=== PATIENT | male | born 1985 | race Caucasian/White ===

== ENCOUNTER 2017-10-06 19:52 | Inpatient (IN) | payer SELFPAY ==
[2017-10-06 19:54] VITALS: BP 139/77; PULSE 116; RESP 17; TEMP 37.6; O2SAT 97; BMI 23.9
--- NOTE | 2017-10-06 20:43 | EKG12_ITS ---
Test Reason : ABSCESS Blood Pressure : / mmHG Vent. Rate : 095 BPM Atrial Rate : 095 BPM P-R Int : 148 ms QRS Dur : 090 ms QT Int : 340 ms P-R-T Axes : 050 -43 048 degrees QTc Int : 427 ms Normal sinus rhythm Left axis deviation Abnormal ECG Confirmed by RINA JAVIER, JASON ([id number]), acquisitions editor FRANK WRAY ([id number] on 10/10/2017 1:06:21 PM Referred By: ODALIS Confirmed By:JASON FLYNN MD
[2017-10-06 21:11] LABS: Lactic Acid 1.9 mmol/L (0.4-2.0)
[2017-10-06 21:13] LABS: Absolute Lymphocyte Count 2.18 X10^3/ul (0.83-4.51); Absolute Neutrophil Count 13.3 X10^3/uL (2.0-7.7); Basophil# 0.03 X10^3/uL; Basophil% 0.2 % (0-1); Eosinophil# 0.11 X10^3/uL; Eosinophils% 0.7 % (0-5); Hematocrit 41.7 % (40-54); Hemoglobin 14.5 g/dl (13.0-16.5); Lymphocyte # 2.18 X10^3/ul (4.0); Lymphocyte % 13.1 % (19-41); Mean Corp Hgb Conc 34.8 g/gl (32-36); Mean Corpuscular Hgb 30.1 pg (27.0-32.0); Mean Corpuscular Volume 86.5 fL (80-94); Mean Platelet Vol. 9.7 fl (6.2-12.0); Monocyte# 0.93 X10^3/uL; Monocyte% 5.6 % (0-10); Neutrophil # 13.33 X10^3/uL (2.7-7.7); Neutrophil % 80.2 % (47-70); Platelet Count 364 K/mm3 (150-450); RBC Distribution Width CV 13.3 % (11.6-14.6); RBC Distribution Width SD 41.2 fl (35.1-43.9); Red Blood Count 4.82 M/mm3 (4.6-6.2); White Blood Count 16.6 K/mm3 (4.4-11.0)
[2017-10-06] MEDS: Acetaminophen 325 MG Tablet 650 MG PO (21:15)
[2017-10-06] MEDS: 0.9% Normal Saline 1,000 ML 250 ML IV (21:15)
[2017-10-06 21:16] LABS: Prothrombin Time (Protime)PT. 12.7 SECONDS (11.7-14.9)
[2017-10-06 21:17] LABS: Partial Thromboplast Time 28.4 Seconds (24.1-36.2)
[2017-10-06 21:18] LABS: POSITIVE COUNT NO; POSITIVE DIFFERENTIAL NO; POSITIVE MORPHOLOGY NO
--- NOTE | 2017-10-06 21:19 | RAD_ITS ---
STUDY: X-RAY - LEFT HAND REASON FOR EXAM: Male, 31 years old. Left hand infection. TECHNIQUE: 3 view(s) of the hand. COMPARISON: None. FINDINGS: There is no evidence of fracture or dislocation. There are no significant degenerative changes. There is soft tissue swelling along the dorsum of the hand. There are no definite radiographic findings of osteomyelitis. There are no radiodense foreign bodies. RAD/Hand Min 3 Views IMPRESSION: No fracture or dislocation. Soft tissue swelling along the dorsum of the left hand. No definite radiographic findings of osteomyelitis. Electronically Signed: Gerber Quintanilla, at 22:12 EDT Tel , Service support ,
[2017-10-06 21:31] LABS: ALB/GLOB Ratio 0.9 RATIO (0.9-2.4); AST(SGOT) 19 U/L (15-37); Alanine Aminotransfer ALT/SGPT 21 U/L (16-61); Albumin, Serum 3.7 g/dL (3.2-5.0); Alkaline Phosphatase 61 U/L (45-117); Anion Gap 12 (5-15); BUN 12 mg/dL (7-18); BUN/Creat Ratio 13.7 RATIO (10-20); Calcium,Total 8.4 mg/dL (8.5-10.1); Chloride 102 mmol/L (98-107); Creatinine, Serum 0.88 mg/dL (0.70-1.30); EST Glomerular Filtration Rate 106 mL/min (>60); Est Glom Filt Rate - Afr Amer 128 mL/min (>60); Estimated Creatinine Clearance 107.74 ml/min; Globulin 3.9 g/dL (2.2-4.2); Glucose 95 mg/dL (74-106); Potassium 3.4 mmol/L (3.5-5.1); Protein, Total 7.6 g/dL (6.4-8.2); Sodium Level 137 mmol/L (136-145)
[2017-10-06] MEDS: Vancomycin IV 1,000 MG/200 ML BAG 200 MG IV (22:41)
[2017-10-06] MEDS: oxyCODONE 5 MG Tablet 10 MG PO (22:44)
--- NOTE | 2017-10-06 22:44 | ED.DCSUM_ITS ---
- ER Visit Summary Date of Service: 10/06/17 Chief Complaint: Left hand abscess History of Present Illness: The patient is a 31 M presenting for evaluation secondary to left hand infection. Patient reports that 2 days ago he noticed a small pustule on the dorsum of his left hand. He is right-hand dominant. Patient thought he was bit by a spider, so he heated up a pen and poked it into the area. He states that he has now had increasing swelling redness and pain. He states that he has been getting some subjective fevers associated with this. Review of systems otherwise negative Physical Examination: Vital signs are notable for tachycardia with a rate of 116. Patient has mildly elevated temperature 99.6. Exam is unremarkable except for examination of the patient's left hand. There is a large approximately 3 cm area of raised fluctuance over the dorsal portion of the patient's distal third metacarpal. There is diffuse swelling over the dorsum of the hand going down into the fingers. There is no evidence of sausage digit , there is some pain with passive extension of the hand, but there is no pain going up into the forearm. There is diffuse erythema over the dorsum of the hand. No lymphangitic streaking. Test Results: CBC demonstrates leukocytosis of 16.9 remainder the patient's septic workup unremarkable Emergency Department Course and Treatment: Patient presented for evaluation secondary to a left hand infection. Patient was consented for incision and drainage. Area was anesthetized via a field block using 10 cc 1% lidocaine. The area was prepped with alcohol, was incised with an 11 blade and purulent material was expressed. This was cultured. This was left open placed in a dry sterile dressing and the patient was placed in a volar resting splint. Patient has evidence of sepsis at this time, I believe he requires admission patient was given vancomycin in the emergency department. He does not seem to have evidence that this is a deep space infection of his hand, and x-ray actually demonstrated the patient to have more dorsal soft tissue swelling. I discussed this with orthopedics, who agrees to see the patient in consultation. Patient will be admitted for further IV antibiotics and observation. Disposition: Admission Impression: 1. Left hand abscess with cellulitis 2. Sepsis This note was generated with [employer] software. It may contain incorrect words, spelling, and punctuation that were not noted in review of the chart prior to signing ED Disposition - Plan for ED Patient: Chief Complaint: Abscess Referrals: Luis Fernando Arzola MD [Primary Care Provider] -
--- NOTE | 2017-10-06 23:49 | HP.PCM_ITS ---
Problem List (1) ETOH abuse Status: Acute (2) Tobacco abuse Status: Acute (3) Cellulitis of left hand Status: Acute History of Present Illness Date of Admission: 10/06/17 Chief Complaint: Cellulitis The patient is a 31 year old male w/ h/o EtOH abuse and tobacco abuse admitted for left hand cellulitis. He noted 2 puncture wounds on his left hand 2 days ago. However, over the next few days, he noted worsening swelling and redness. Nothing made the redness better or worse. He has increase pain. Pain is severe and constant. Pain is sharp and dull-aching as well. He has chill. Past Medical History Allergies Penicillins Allergy (Verified 10/06/17 20:13) Hives Home Medications: Ambulatory Orders Medication Instructions Recorded Acyclovir 500 mg PO DAILY 10/06/17 NK [NK] 10/06/17 Smoking Status: Current every day smoker Alcohol: Heavy Drugs: None - *Family History Maternal History Items: No pertinent history Review of Systems Constitutional: Denies: Chills, Fever, Weight Change HEENT: Denies: Head Aches, Sinus Congestion, Sinus Drainage Cardiovascular: Denies: Chest Pain, Palpitations Respiratory: Denies: Cough, Shortness of breath at rest, Sputum production Gastrointestinal: Denies: Abdominal Pain, Nausea, Vomiting Genitourinary: Denies: Dysuria Musculoskeletal: Denies: Joint Pain, Joint Tenderness Skin: Reports: Rash. Denies: Wounds Neurological: Denies: Numbness, Tingling, Focal weakness Psychiatric: Denies: Anxiety, Depression, Homicidal Ideations, Suicidal Ideations Hematologic/ Lymphatic: Denies: Easy Bruising, Easy Bleeding VTE Information - Inpt Only VTE Present on Admission: No VTE Mechan Device Prophylaxis: SCD's VTE Pharm Prophylaxis ordered?: Yes Patient Problems: Active and Suspected Problems ETOH abuse (Acute) Tobacco abuse (Acute) Cellulitis of left hand (Acute) - Physical Exam General: Alert, Oriented x3, Cooperative HEENT: Atraumatic, PERRLA, EOMI, Normocephalic Neck: Supple, No JVD, Negative Carotid Bruits Lungs: Clear to auscultation, Normal air movement Cardiovascular: Regular rate, No murmurs Abdomen: Bowel Sounds Present, Soft, Non Tender Extremities: Capillary Refill Less than 3 Seconds, Tenderness, - - Dressing d/c/ i Skin: No rashes, No breakdown Musculoskeletal: No Tenderness to Palpation of Joints or Extremities Neurological: Cranial nerves II-XII grossly intact Psych/Mental Status: Normal Affect, Appropriate Vital Signs Temp Pulse Resp BP Pulse Ox 99.6 F H 116 H 17 139/77 H 97 10/06/17 19:54 10/06/17 19:54 10/06/17 19:54 10/06/17 19:54 10/06/17 19:54 Oxygen Delivery Method Room Air Weight: 67.3 kg Body Mass Index (BMI) 23.9 Laboratory Tests Past 24 Hrs 10/06/17 10/06/17 10/06/17 20:00 20:00 20:00 WBC 16.6 H RBC 4.82 Hgb 14.5 Hct 41.7 MCV 86.5 MCH 30.1 MCHC 34.8 RDW 13.3 RDW Differential 41.2 Plt Count 364 MPV 9.7 Immature Gran % (Auto) 0.200 Neut % (Auto) 80.2 H Lymph % (Auto) 13.1 L [place] % (Auto) 5.6 Eos % (Auto) 0.7 Baso % (Auto) 0.2 Absolute Neuts (auto) 13.3 H Absolute Lymphs (auto) 2.18 Total Counted Not Reportable PT 12.7 INR 1.0 APTT 28.4 Sodium Potassium Chloride Carbon Dioxide Anion Gap BUN Creatinine Estim Creat Clear Calc Est GFR (MDRD) Af Amer Est GFR (MDRD) Non-Af BUN/Creatinine Ratio Glucose Lactic Acid 1.9 Calcium Total Bilirubin AST ALT Alkaline Phosphatase Total Protein Albumin Globulin Albumin/Globulin Ratio 10/06/17 20:10 WBC RBC Hgb Hct MCV MCH MCHC RDW RDW Differential Plt Count MPV Immature Gran % (Auto) Neut % (Auto) Lymph % (Auto) [place] % (Auto) Eos % (Auto) Baso % (Auto) Absolute Neuts (auto) Absolute Lymphs (auto) Total Counted PT INR APTT Sodium 137 Potassium 3.4 L Chloride 102 Carbon Dioxide 23.0 Anion Gap 12 BUN 12 Creatinine 0.88 Estim Creat Clear Calc 107.74 Est GFR (MDRD) Af Amer 128 Est GFR (MDRD) Non-Af 106 BUN/Creatinine Ratio 13.7 Glucose 95 Lactic Acid Calcium 8.4 L Total Bilirubin 0.50 AST 19 ALT 21 Alkaline Phosphatase 61 Total Protein 7.6 Albumin 3.7 Globulin 3.9 Albumin/Globulin Ratio 0.9 Assessment/Plan All Active Problems ETOH abuse (Acute) Tobacco abuse (Acute) Cellulitis of left hand (Acute) 31 year old male w/ h/o EtOH abuse and tobacco abuse admitted for left hand cellulitis. 1) Sepsis secondary to cellulitis: C/w vancomycin. Cultures pending. Consulted ortho from ED. 2) EtOH abuse: Will monitor for withdrawal. C/w CIWA. C/w MVI. 3) Tobacco abuse: Nicotine patch. Monitor.
[2017-10-07 00:57] VITALS: BMI 23.2
[2017-10-07] MEDS: oxyCODONE 5 MG Tablet PO ×5 (01:33→19:24)
[2017-10-07 02:16] VITALS: BP 110/68; PULSE 92; RESP 16; TEMP 37.8; O2SAT 96
--- NOTE | 2017-10-07 03:25 | PCM.RX.CS ---
Consult Pharmacy has been consulted to manage selected antiobiotic: Vancomycin Type of Consult: New start Suspected Infection: Skin/Soft tissue Prior Doses of Antibiotics Received/Current Regimen: Medications Discontinued Medications Vancomycin HCl (Vancomycin) 1,000 mg in 200 mls @ 200 mls/hr IV X1 ONE Stop: 10/06/17 21:59 Last Admin: 10/06/17 22:41 Dose: 200 mls/hr Labs: Sodium 137 mmol/L (136-145) 10/06/17 20:10 Potassium 3.4 mmol/L (3.5-5.1) L 10/06/17 20:10 Chloride 102 mmol/L (98-107) 10/06/17 20:10 Carbon Dioxide 23.0 mmol/L (21.0-32.0) 10/06/17 20:10 Anion Gap 12 (5-15) 10/06/17 20:10 BUN 12 mg/dL (7-18) 10/06/17 20:10 Creatinine 0.88 mg/dL (0.70-1.30) 10/06/17 20:10 Est GFR (MDRD) Af Amer 128 mL/min (>60) 10/06/17 20:10 Est GFR (MDRD) Non-Af 106 mL/min (>60) 10/06/17 20:10 BUN/Creatinine Ratio 13.7 RATIO (10-20) 10/06/17 20:10 Glucose 95 mg/dL (74-106) 10/06/17 20:10 Weight used for dosin.3 kg Estimated Creatinine Clearance: 107.7 Goal Trough: 15-20 mcg/mL Pharmacy Plan for Drug Dosing: Pharmacy Service will continue to monitor and adjust dosing as required. Medications Vancomycin HCl 750 mg/ Sodium (Chloride) 265 mls @ 265 mls/hr IV Q8H [facility] Follow-Up Labs: Trough Vancomycin Labs to be done on [date and time ordered]: 10/07 @2300
--- NOTE | 2017-10-07 03:28 | PHA.PHARE_ITS ---
Consult Pharmacy has been consulted to manage selected antiobiotic: Vancomycin Type of Consult: New start Suspected Infection: Skin/Soft tissue Prior Doses of Antibiotics Received/Current Regimen: Medications Discontinued Medications Vancomycin HCl (Vancomycin) 1,000 mg in 200 mls @ 200 mls/hr IV X1 ONE Stop: 10/06/17 21:59 Last Admin: 10/06/17 22:41 Dose: 200 mls/hr Labs: Sodium 137 mmol/L (136-145) 10/06/17 20:10 Potassium 3.4 mmol/L (3.5-5.1) L 10/06/17 20:10 Chloride 102 mmol/L (98-107) 10/06/17 20:10 Carbon Dioxide 23.0 mmol/L (21.0-32.0) 10/06/17 20:10 Anion Gap 12 (5-15) 10/06/17 20:10 BUN 12 mg/dL (7-18) 10/06/17 20:10 Creatinine 0.88 mg/dL (0.70-1.30) 10/06/17 20:10 Est GFR (MDRD) Af Amer 128 mL/min (>60) 10/06/17 20:10 Est GFR (MDRD) Non-Af 106 mL/min (>60) 10/06/17 20:10 BUN/Creatinine Ratio 13.7 RATIO (10-20) 10/06/17 20:10 Glucose 95 mg/dL (74-106) 10/06/17 20:10 Weight used for dosin.3 kg Estimated Creatinine Clearance: 107.7 Goal Trough: 15-20 mcg/mL Pharmacy Plan for Drug Dosing: Pharmacy Service will continue to monitor and adjust dosing as required. Medications Vancomycin HCl 750 mg/ Sodium (Chloride) 265 mls @ 265 mls/hr IV Q8H [facility] Follow-Up Labs: Trough Vancomycin Labs to be done on [date and time ordered]: 10/07 @2300
[2017-10-07] MEDS: 0.9% Normal Saline 1,000 ML 100 ML IV ×2 (05:41→18:16)
[2017-10-07 06:10] LABS: Absolute Lymphocyte Count 1.05 X10^3/ul (0.83-4.51); Absolute Neutrophil Count 11.2 X10^3/uL (2.0-7.7); Basophil# 0.02 X10^3/uL; Basophil% 0.1 % (0-1); Eosinophil# 0.11 X10^3/uL; Eosinophils% 0.8 % (0-5); Hematocrit 39.1 % (40-54); Hemoglobin 13.3 g/dl (13.0-16.5); Lymphocyte # 1.05 X10^3/ul (4.0); Lymphocyte % 7.8 % (19-41); Mean Corpuscular Volume 88.1 fL (80-94); Mean Platelet Vol. 9.6 fl (6.2-12.0); Monocyte# 1.15 X10^3/uL; Monocyte% 8.5 % (0-10); Neutrophil # 11.15 X10^3/uL (2.7-7.7); Neutrophil % 82.6 % (47-70); Platelet Count 292 K/mm3 (150-450); RBC Distribution Width CV 13.4 % (11.6-14.6); RBC Distribution Width SD 42.8 fl (35.1-43.9); Red Blood Count 4.44 M/mm3 (4.6-6.2); White Blood Count 13.5 K/mm3 (4.4-11.0)
[2017-10-07 06:24] LABS: Anion Gap 7 (5-15); BUN 17 mg/dL (7-18); BUN/Creat Ratio 26.9 RATIO (10-20); Chloride 107 mmol/L (98-107); Creatinine, Serum 0.63 mg/dL (0.70-1.30); EST Glomerular Filtration Rate 154 mL/min (>60); Est Glom Filt Rate - Afr Amer 187 mL/min (>60); Estimated Creatinine Clearance 155.92 ml/min; Glucose 132 mg/dL (74-106); Potassium 4.1 mmol/L (3.5-5.1); Sodium Level 140 mmol/L (136-145)
[2017-10-07 06:34] LABS: POSITIVE COUNT NO; POSITIVE DIFFERENTIAL NO; POSITIVE MORPHOLOGY NO
[2017-10-07 07:30] LABS: Bedside Glucose 112 mg/dL (70-110)
--- NOTE | 2017-10-07 08:53 | NURSING ---
wound photo: left hand s/p I&D
--- NOTE | 2017-10-07 09:00 | NURSING ---
wound photo: left hand
[2017-10-07 09:14] VITALS: BP 113/77; PULSE 81; RESP 16; TEMP 36.9; O2SAT 98
[2017-10-07] MEDS: Thiamine Hydrochloride 100 MG Tablet PO (09:56)
--- NOTE | 2017-10-07 10:32 | PCM.PN.HOSP ---
Patient Problems: Active and Suspected Problems ETOH abuse (Acute) Tobacco abuse (Acute) Cellulitis of left hand (Acute) Subjective: had some purulent fluid expressed from dorsal left knuckle by wound care today. Vitals/I&O's: Vital Signs Temp Pulse Resp BP Pulse Ox 36.9 C 81 16 113/77 98 10/07/17 09:14 10/07/17 09:14 10/07/17 09:14 10/07/17 09:14 10/07/17 09:14 Oxygen Delivery Method Room Air Weight: 67.33 kg Body Mass Index (BMI) 23.2 Intake and Output for Last 24 Hours 10/05/17 10/06/17 10/07/17 23:59 23:59 23:59 Intake Total 500 / 500 Balance 500 / 500 General: Alert, No apparent distress HEENT: Atraumatic, Normocephalic Oral: Moist Mucosa, No Gingival or Mucosal Lesions/ Ulcerations Neck: No Nodes, Thyroid Normal Size and Texture Lungs: Clear to auscultation, Normal air movement, No rhonchi, No wheeze Cardiovascular: Regular rate, Regular Rhythm, Normal S1, Normal S2 Abdomen: Bowel Sounds Present, Soft, Non Tender, Non-Distended Extremities: - - left hand and wrist in splint, did not remove. Psych/Mental Status: Normal Affect, Appropriate Laboratory Results 10/07/17 05:45: WBC 13.5 H, RBC 4.44 L, Hgb 13.3, Hct 39.1 L, MCV 88.1, MCH 30.0, MCHC 34.0, RDW 13.4, RDW Differential 42.8, Plt Count 292, MPV 9.6, Immature Gran % (Auto) 0.200, Neut % (Auto) 82.6 H, Lymph % (Auto) 7.8 L, [place] % (Auto) 8.5, Eos % (Auto) 0.8, Baso % (Auto) 0.1, Absolute Neuts (auto) 11.2 H, Absolute Lymphs (auto) 1.05, Total Counted Not Reportable 10/07/17 05:45: Sodium 140, Potassium 4.1, Chloride 107, Carbon Dioxide 26.0, Anion Gap 7, BUN 17, Creatinine 0.63 L, Estim Creat Clear Calc 155.92, Est GFR (MDRD) Af Amer 187, Est GFR (MDRD) Non-Af 154, BUN/Creatinine Ratio 26.9 H, Glucose 132 H, Calcium 8.0 L 10/07/17 07:27: POC Glucose 112 H 10/07/17 08:50: S.aureus Protein A PCR Pending, MRSA (PCR) Pending Current Medications Dextrose (D50w Syringe) 0 gm IV X1 PRN; Protocol PRN Reason: Hypoglycemia Glucagon () 1 mg IM .X1 PRN PRN Reason: Hypoglycemia Heparin Sodium (Porcine) (Heparin Na) 5,000 unit SC Q8 [facility] Last Admin: 10/07/17 06:53 Dose: Not Given Sodium Chloride () 1,000 mls @ 100 mls/hr IV .Q10H [facility] Last Admin: 10/07/17 05:41 Dose: 100 mls/hr Vancomycin HCl 750 mg/ Sodium (Chloride) 265 mls @ 265 mls/hr IV Q8H [facility] Last Admin: 10/07/17 06:51 Dose: 265 mls/hr Lorazepam (Ativan) 2 mg PO Q2H PRN PRN; Protocol PRN Reason: CIWA score > 8 but <15 Lorazepam (Ativan) 2 mg PO UD PRN; Protocol PRN Reason: CIWA score >/=15. Lorazepam (Ativan) 2 mg IV Q2H PRN PRN; Protocol PRN Reason: CIWA score > 8 but <15 Lorazepam (Ativan) 2 mg IV UD PRN; Protocol PRN Reason: CIWA score >/=15. Magnesium Hydroxide (Milk Of Magnesia) 30 ml PO DAILY PRN PRN PRN Reason: Constipation Multivitamins/Minerals (Multivitamin With Minerals) 1 tablet PO DAILY@0800 [facility] Nicotine (Nicoderm Cq (Pbkc)) 21 mg TRANSDERM. DAILY [facility] Last Admin: 10/07/17 09:57 Dose: 21 mg Oxycodone HCl (Oxyir) 5 mg PO Q4H PRN PRN PRN Reason: Moderate Pain (pain scale 4-5) Last Admin: 10/07/17 09:57 Dose: 5 mg Sodium Chloride () 5 - 30 ml IV UD PRN PRN Reason: SALINE FLUSH [facility] Last Admin: 10/07/17 09:56 Dose: 100 mg Medical Necessity - Tobacco Use Smoking Status: Current every day smoker Assessment/Plan All Active Problems ETOH abuse (Acute) Tobacco abuse (Acute) Cellulitis of left hand (Acute) 1. cellulitis and abscess of left hand. blood cultures negative so far wound culture pending. on vancomycin ortho on consult 2. alcohol abuse drinks pretty much everyday, usually 2-24 oz beers. last drink yesterday AM. previously, was an even heavier drinker no s/s withdrawal/DTs. on CIWA protocol MVI 3. DVT proph: LMWH. Code Visit Inpatient E&M: 06893 Subs Hosp L2
--- NOTE | 2017-10-07 10:37 | PN_ITS ---
Patient Problems: Active and Suspected Problems ETOH abuse (Acute) Tobacco abuse (Acute) Cellulitis of left hand (Acute) Subjective: had some purulent fluid expressed from dorsal left knuckle by wound care today. Vitals/I&O's: Vital Signs Temp Pulse Resp BP Pulse Ox 36.9 C 81 16 113/77 98 10/07/17 09:14 10/07/17 09:14 10/07/17 09:14 10/07/17 09:14 10/07/17 09:14 Oxygen Delivery Method Room Air Weight: 67.33 kg Body Mass Index (BMI) 23.2 Intake and Output for Last 24 Hours 10/05/17 10/06/17 10/07/17 23:59 23:59 23:59 Intake Total 500 / 500 Balance 500 / 500 General: Alert, No apparent distress HEENT: Atraumatic, Normocephalic Oral: Moist Mucosa, No Gingival or Mucosal Lesions/ Ulcerations Neck: No Nodes, Thyroid Normal Size and Texture Lungs: Clear to auscultation, Normal air movement, No rhonchi, No wheeze Cardiovascular: Regular rate, Regular Rhythm, Normal S1, Normal S2 Abdomen: Bowel Sounds Present, Soft, Non Tender, Non-Distended Extremities: - - left hand and wrist in splint, did not remove. Psych/Mental Status: Normal Affect, Appropriate Laboratory Results 10/07/17 05:45: WBC 13.5 H, RBC 4.44 L, Hgb 13.3, Hct 39.1 L, MCV 88.1, MCH 30.0 , MCHC 34.0, RDW 13.4, RDW Differential 42.8, Plt Count 292, MPV 9.6, Immature Gran % (Auto) 0.200, Neut % (Auto) 82.6 H, Lymph % (Auto) 7.8 L, [place] % (Auto) 8.5, Eos % (Auto) 0.8, Baso % (Auto) 0.1, Absolute Neuts (auto) 11.2 H, Absolute Lymphs (auto) 1.05, Total Counted Not Reportable 10/07/17 05:45: Sodium 140, Potassium 4.1, Chloride 107, Carbon Dioxide 26.0, Anion Gap 7, BUN 17, Creatinine 0.63 L, Estim Creat Clear Calc 155.92, Est GFR ( MDRD) Af Amer 187, Est GFR (MDRD) Non-Af 154, BUN/Creatinine Ratio 26.9 H, Glucose 132 H, Calcium 8.0 L 10/07/17 07:27: POC Glucose 112 H 10/07/17 08:50: S.aureus Protein A PCR Pending, MRSA (PCR) Pending Current Medications Dextrose (D50w Syringe) 0 gm IV X1 PRN; Protocol PRN Reason: Hypoglycemia Glucagon () 1 mg IM .X1 PRN PRN Reason: Hypoglycemia Heparin Sodium (Porcine) (Heparin Na) 5,000 unit SC Q8 [facility] Last Admin: 10/07/17 06:53 Dose: Not Given Sodium Chloride () 1,000 mls @ 100 mls/hr IV .Q10H [facility] Last Admin: 10/07/17 05:41 Dose: 100 mls/hr Vancomycin HCl 750 mg/ Sodium (Chloride) 265 mls @ 265 mls/hr IV Q8H [facility] Last Admin: 10/07/17 06:51 Dose: 265 mls/hr Lorazepam (Ativan) 2 mg PO Q2H PRN PRN; Protocol PRN Reason: CIWA score > 8 but <15 Lorazepam (Ativan) 2 mg PO UD PRN; Protocol PRN Reason: CIWA score >/=15. Lorazepam (Ativan) 2 mg IV Q2H PRN PRN; Protocol PRN Reason: CIWA score > 8 but <15 Lorazepam (Ativan) 2 mg IV UD PRN; Protocol PRN Reason: CIWA score >/=15. Magnesium Hydroxide (Milk Of Magnesia) 30 ml PO DAILY PRN PRN PRN Reason: Constipation Multivitamins/Minerals (Multivitamin With Minerals) 1 tablet PO DAILY@0800 [facility] Nicotine (Nicoderm Cq (Pbkc)) 21 mg TRANSDERM. DAILY [facility] Last Admin: 10/07/17 09:57 Dose: 21 mg Oxycodone HCl (Oxyir) 5 mg PO Q4H PRN PRN PRN Reason: Moderate Pain (pain scale 4-5) Last Admin: 10/07/17 09:57 Dose: 5 mg Sodium Chloride () 5 - 30 ml IV UD PRN PRN Reason: SALINE FLUSH Thiamine [facility] ([facility]itamin B1) [facility] Last Admin: 10/07/17 09:56 Dose: 100 mg Medical Necessity - Tobacco Use Smoking Status: Current every day smoker Assessment/Plan All Active Problems ETOH abuse (Acute) Tobacco abuse (Acute) Cellulitis of left hand (Acute) 1. cellulitis and abscess of left hand. * blood cultures negative so far * wound culture pending. * on vancomycin * ortho on consult 2. alcohol abuse * drinks pretty much everyday, usually 2-24 oz beers. last drink yesterday AM. * previously, was an even heavier drinker * no s/s withdrawal/DTs. * on CIWA protocol * MVI 3. DVT proph: LMWH. Code Visit Inpatient E&M: 53841 Subs Hosp L2
--- NOTE | 2017-10-07 11:53 | CASEMGMT ---
Social Work Assessment: Referral Date: 10/07/2017 Date of Assessment: 10/07/2017 Reason for consult: Self-pay Informant: CHARITY Personal Status: SW met with pt as pt is listed as self-pay. SW introduced self and role at [facility]. Pt is alert and orientated x4. Pt has company present and gave this worker permission to speak to pt in front of company. Pt states that his company is his emergency contact. Pt states that before coming in to the hospital he was living with his significant other in an apartment. Pt states that he has three steps to enter his apartment. Pt states that he was previously independent with ADLs. Pt denied DME. Pt states that he used to work at [employer] and that he currently doesn't have insurance. Pt states that a while ago he completed a Medicaid Application. SW encouraged pt to fill out Medicaid application again to determine if he is eligible to receive Medicaid. Pt is agreeable to filling out Medicaid application. Pt states that his plans is to return home at discharge and denied additional needs or concerns at this time. Substance Abuse Hx: Pt states that he currently uses alcohol and smokes Marijuana. Pt states that it depends on how much alcohol and marijuana he uses. Pt denied wanting substance abuse counseling resources. Mental Health Hx: Pt states that he has a history of depression, bipolar, and ADHD. Pt states that he used to receive counseling services at [facility]. Pt states counseling probably would've helped but I didn't want to to talk to anyone. Pt denied wanting additional counseling services/resources at this time. CHARITY provided pt with Medicaid Application and educated pt on [employer] [facility], [facility], prescription assistance programs, [facility], transportation services as pt stated he currently doesn't have transportation, and [employer] application. When this worker provided pt with financial assistance resources pt requested a release of information form to fill out. CHARITY provided pt with release of information form. Pt states that once his emergency contact returns to the room he would like her to fill out forms. CHARITY placed a call to Martita in Patient Financial Services and left her a message informing her that pt is agreeable to filling out Medicaid Application. Plan: Pt to return home at discharge Elvi Montiel [employer]
--- NOTE | 2017-10-07 12:13 | PN.ORTHO_ITS ---
Patient Problems: Active and Suspected Problems ETOH abuse (Acute) Tobacco abuse (Acute) Cellulitis of left hand (Acute) Subjective: ORTH CONSULT Patient reports possible spider bite 3-4 days ago on dorsum of left hand. Came through ED yesterday where dorsum of left hand was I & D'd. Reports pain in left hand, but not up arm. Denies constitutional symptoms. PMHx, PSHx, ROS, Family hx, Medications and allergies reviewed per intake H&P. - Physical Exam General: Oriented x3, No apparent distress Extremities: Tenderness - left hand with dorsal warmth and erythema. +Kanavel' s signs salma middle and index digits. No pain with ROM in wrist. No redness or streaking. Dorsal I&D wound over middle mcp joint with gauze packing. Vital Signs Temp Pulse Resp BP Pulse Ox 98.5 F 81 16 113/77 98 10/07/17 09:14 10/07/17 09:14 10/07/17 09:14 10/07/17 09:14 10/07/17 09:14 Oxygen Delivery Method Room Air Weight: 148 lb 7 oz Body Mass Index (BMI) 23.2 Intake and Output for Last 24 Hours 10/05/17 10/06/17 10/07/17 23:59 23:59 23:59 Intake Total 500 / 500 Balance 500 / 500 Laboratory Tests Past 24 Hrs 10/07/17 10/07/17 10/07/17 05:45 05:45 08:50 WBC 13.5 H RBC 4.44 L Hgb 13.3 Hct 39.1 L MCV 88.1 MCH 30.0 MCHC 34.0 RDW 13.4 RDW Differential 42.8 Plt Count 292 MPV 9.6 Immature Gran % (Auto) 0.200 Neut % (Auto) 82.6 H Lymph % (Auto) 7.8 L [place] % (Auto) 8.5 Eos % (Auto) 0.8 Baso % (Auto) 0.1 Absolute Neuts (auto) 11.2 H Absolute Lymphs (auto) 1.05 Total Counted Not Reportable Sodium 140 Potassium 4.1 Chloride 107 Carbon Dioxide 26.0 Anion Gap 7 BUN 17 Creatinine 0.63 L Estim Creat Clear Calc 155.92 Est GFR (MDRD) Af Amer 187 Est GFR (MDRD) Non-Af 154 BUN/Creatinine Ratio 26.9 H Glucose 132 H Calcium 8.0 L S.aureus Protein A PCR Pending MRSA (PCR) Pending POC Glucose 10/07/17 07:27 POC Glucose 112 H Medical Necessity - Tobacco Use Smoking Status: Current every day smoker Assessment/Plan All Active Problems ETOH abuse (Acute) Tobacco abuse (Acute) Cellulitis of left hand (Acute) Cellulitis left hand cannot r/o dorsal tenosynovitis or mcp septic arthritis at this point. Pending response to IV antibiotics, may need more formal surgical attention. As I explained to the ED physician, I do not do this type of surgery. Patient has had previous left hand/wrist I&D in [place]. Recommend transfer if doesn't respond well to antibiotic tx in the next 12-24 hrs.
[2017-10-07 12:20] LABS: M R Staph aureus DNA By PCR POSITIVE (Negative); Probe Check PASS; Staph aureus DNA By PCR POSITIVE (Negative)
[2017-10-07] MEDS: Multivitamins,Ther W-Minerals Tablet 1 TABLET PO (12:45)
[2017-10-07 13:05] LABS: Bedside Glucose 106 mg/dL (70-110)
[2017-10-07] MEDS: Heparin Injection (Vial) 5,000 UNIT/ML VIAL 5000 UNIT SC ×2 (15:01→23:15)
[2017-10-07 15:12] VITALS: BP 129/75; PULSE 78; RESP 16; TEMP 37.2; O2SAT 97
[2017-10-07 17:10] LABS: Bedside Glucose 105 mg/dL (70-110)
[2017-10-07 22:31] VITALS: BP 128/79; PULSE 72; RESP 14; TEMP 37.1; O2SAT 97
[2017-10-07 23:00] LABS: Bedside Glucose 121 mg/dL (70-110)
[2017-10-07 23:24] LABS: Vancomycin, Trough Level 5.9 ug/mL (5.0-15.0)
[2017-10-08] MEDS: oxyCODONE 5 MG Tablet PO ×5 (00:10→23:31)
[2017-10-08 03:00] VITALS: BP 125/81; PULSE 63; RESP 14; TEMP 37.2; O2SAT 97
[2017-10-08] MEDS: Heparin Injection (Vial) 5,000 UNIT/ML VIAL 5000 UNIT SC ×3 (05:37→21:01)
--- NOTE | 2017-10-08 07:12 | PCM.RX.CS ---
Consult Pharmacy has been consulted to manage selected antiobiotic: Vancomycin Type of Consult: New start Suspected Infection: Skin/Soft tissue Prior Doses of Antibiotics Received/Current Regimen: Medications Vancomycin HCl 750 mg/ Sodium (Chloride) 265 mls @ 265 mls/hr IV Q8H [facility] Last Admin: 10/08/17 06:01 Dose: 265 mls/hr Labs: Sodium 140 mmol/L (136-145) 10/07/17 05:45 Potassium 4.1 mmol/L (3.5-5.1) 10/07/17 05:45 Chloride 107 mmol/L (98-107) 10/07/17 05:45 Carbon Dioxide 26.0 mmol/L (21.0-32.0) 10/07/17 05:45 Anion Gap 7 (5-15) 10/07/17 05:45 BUN 17 mg/dL (7-18) 10/07/17 05:45 Creatinine 0.63 mg/dL (0.70-1.30) L 10/07/17 05:45 Est GFR (MDRD) Af Amer 187 mL/min (>60) 10/07/17 05:45 Est GFR (MDRD) Non-Af 154 mL/min (>60) 10/07/17 05:45 BUN/Creatinine Ratio 26.9 RATIO (10-20) H 10/07/17 05:45 Glucose 132 mg/dL (74-106) H 10/07/17 05:45 Vancomycin Trough 5.9 ug/mL (5.0-15.0) 10/07/17 22:34 Weight used for dosin kg Estimated Creatinine Clearance: 155 mL/min Goal Trough: 10-15 mcg/mL Pharmacy Plan for Drug Dosing: Vancomycin trough not within goal range but likely not yet at steady-state. Patient with relatively small BMI, good renal function, recommend to increase to 1000mg IV q8h, shorten time slightly to next dose to allow for increased trough. Check in 48h to ensure efficacy. Pharmacy Service will continue to monitor and adjust dosing as required. Follow-Up Labs: Trough Vancomycin - 10/10/17 @ 1300
--- NOTE | 2017-10-08 08:03 | PCM.PN.ORT ---
Patient Problems: Active and Suspected Problems ETOH abuse (Acute) Tobacco abuse (Acute) Cellulitis of left hand (Acute) Subjective: Patient doing better, pain rated 4-5/10, improved from 6-7/10 yesterday. Denies F/C/N/V. - Physical Exam General: Alert, Oriented x3, No apparent distress HEENT: Atraumatic Oral: Moist Mucosa Extremities: Tenderness - Left hend with focal swelling over middle MCP. Less erythema, no streaking. Minimal pain with passive motion of fingers. Vital Signs Temp Pulse Resp BP Pulse Ox 98.9 F 63 14 125/81 H 97 10/08/17 03:00 10/08/17 03:00 10/08/17 03:00 10/08/17 03:00 10/08/17 03:00 Oxygen Delivery Method Room Air Weight: 148 lb 7 oz Body Mass Index (BMI) 23.2 Intake and Output for Last 24 Hours 10/06/17 10/07/17 10/08/17 23:59 23:59 23:59 Intake Total 3601 / 3601 1445 / 1445 Output Total 1500 / 1500 Balance 2101 / 2101 1445 / 1445 Laboratory Tests Past 24 Hrs 10/07/17 10/07/17 08:50 22:34 Vancomycin Trough 5.9 S.aureus Protein A PCR POSITIVE H MRSA (PCR) POSITIVE H POC Glucose 10/07/17 10/07/17 10/07/17 22:43 16:39 12:34 POC Glucose 121 H 105 106 Medical Necessity - Tobacco Use Smoking Status: Current every day smoker Assessment/Plan All Active Problems ETOH abuse (Acute) Tobacco abuse (Acute) Cellulitis of left hand (Acute) Cellulitis left hand probably secondary to spider bite. Afebrile now and x 20 hours. Wound care present to change dressing now. If continues to show improvement on IV antibiotics, will likely not need transferred for more extensive I&D. Will follow closely.
[2017-10-08 08:25] LABS: Absolute Lymphocyte Count 1.59 X10^3/ul (0.83-4.51); Absolute Neutrophil Count 6.9 X10^3/uL (2.0-7.7); Basophil# 0.02 X10^3/uL; Basophil% 0.2 % (0-1); Eosinophil# 0.25 X10^3/uL; Eosinophils% 2.6 % (0-5); Hematocrit 39.4 % (40-54); Hemoglobin 13.3 g/dl (13.0-16.5); Lymphocyte # 1.59 X10^3/ul (4.0); Lymphocyte % 16.8 % (19-41); Mean Corp Hgb Conc 33.8 g/gl (32-36); Mean Corpuscular Hgb 30.2 pg (27.0-32.0); Mean Corpuscular Volume 89.3 fL (80-94); Mean Platelet Vol. 9.3 fl (6.2-12.0); Monocyte# 0.69 X10^3/uL; Monocyte% 7.3 % (0-10); Neutrophil # 6.89 X10^3/uL (2.7-7.7); Platelet Count 278 K/mm3 (150-450); RBC Distribution Width CV 13.5 % (11.6-14.6); RBC Distribution Width SD 44.1 fl (35.1-43.9); Red Blood Count 4.41 M/mm3 (4.6-6.2); White Blood Count 9.5 K/mm3 (4.4-11.0)
[2017-10-08 08:26] LABS: POSITIVE COUNT NO; POSITIVE DIFFERENTIAL NO; POSITIVE MORPHOLOGY NO
[2017-10-08] MEDS: Multivitamins,Ther W-Minerals Tablet 1 TABLET PO (08:31)
[2017-10-08] MEDS: Thiamine Hydrochloride 100 MG Tablet PO (08:31)
[2017-10-08] MEDS: Acyclovir 200 MG Capsule PO ×2 (08:31→21:00)
[2017-10-08 08:35] VITALS: BP 132/88; PULSE 72; RESP 16; TEMP 36.6; O2SAT 100
[2017-10-08 08:46] LABS: Bedside Glucose 114 mg/dL (70-110)
--- NOTE | 2017-10-08 09:26 | PCM.PN.HOSP ---
Patient Problems: Active and Suspected Problems ETOH abuse (Acute) Tobacco abuse (Acute) Cellulitis of left hand (Acute) Subjective: Left hand feeling better. Swelling has receded down arm to just confining the dorsum of his left hand. Able to bend his fingers of his left hand better, but back to normal, yet. Vitals/I&O's: Vital Signs Temp Pulse Resp BP Pulse Ox 36.6 C 72 16 132/88 H 100 10/08/17 08:35 10/08/17 08:35 10/08/17 08:35 10/08/17 08:35 10/08/17 08:35 Oxygen Delivery Method Room Air Weight: 67.33 kg Body Mass Index (BMI) 23.2 Intake and Output for Last 24 Hours 10/06/17 10/07/17 10/08/17 23:59 23:59 23:59 Intake Total 3601 / 3601 1445 / 1445 Output Total 1500 / 1500 Balance 2101 / 2101 1445 / 1445 General: Alert, Cooperative, No apparent distress HEENT: Atraumatic, Normocephalic Oral: Moist Mucosa, No Gingival or Mucosal Lesions/ Ulcerations Skin: - - opened abscess on dorsum of left hand with wick. no erythema. swelling around opening. no lymphagitis. Musculoskeletal: No Tenderness to Palpation of Joints or Extremities, No Muscle Wasting Psych/Mental Status: Normal Affect, Appropriate Laboratory Results 10/07/17 08:50: S.aureus Protein A PCR POSITIVE H, MRSA (PCR) POSITIVE H 10/07/17 12:34: POC Glucose 106 10/07/17 16:39: POC Glucose 105 10/07/17 22:34: Vancomycin Trough 5.9 10/07/17 22:43: POC Glucose 121 H 10/08/17 07:58: WBC 9.5, RBC 4.41 L, Hgb 13.3, Hct 39.4 L, MCV 89.3, MCH 30.2, MCHC 33.8, RDW 13.5, RDW Differential 44.1 H, Plt Count 278, MPV 9.3, Immature Gran % (Auto) 0.100, Neut % (Auto) 73.0 H, Lymph % (Auto) 16.8 L, [place] % (Auto) 7.3, Eos % (Auto) 2.6, Baso % (Auto) 0.2, Absolute Neuts (auto) 6.9, Absolute Lymphs (auto) 1.59, Total Counted Not Reportable 10/08/17 08:27: POC Glucose 114 H Current Medications Acyclovir (Zovirax) 200 mg PO BID [facility] Last Admin: 10/08/17 08:31 Dose: 200 mg Dextrose (D50w Syringe) 0 gm IV X1 PRN; Protocol PRN Reason: Hypoglycemia Glucagon () 1 mg IM .X1 PRN PRN Reason: Hypoglycemia Heparin Sodium (Porcine) (Heparin Na) 5,000 unit SC Q8 [facility] Last Admin: 10/08/17 05:37 Dose: 5,000 units Sodium Chloride () 1,000 mls @ 100 mls/hr IV .Q10H [facility] Last Admin: 10/07/17 18:16 Dose: 100 mls/hr Vancomycin HCl (Vancomycin) 1,000 mg in 200 mls @ 200 mls/hr IV Q8H [facility] Lorazepam (Ativan) 2 mg PO Q2H PRN PRN; Protocol PRN Reason: CIWA score > 8 but <15 Lorazepam (Ativan) 2 mg PO UD PRN; Protocol PRN Reason: CIWA score >/=15. Lorazepam (Ativan) 2 mg IV Q2H PRN PRN; Protocol PRN Reason: CIWA score > 8 but <15 Lorazepam (Ativan) 2 mg IV UD PRN; Protocol PRN Reason: CIWA score >/=15. Magnesium Hydroxide (Milk Of Magnesia) 30 ml PO DAILY PRN PRN PRN Reason: Constipation Multivitamins/Minerals (Multivitamin With Minerals) 1 tablet PO DAILY@0800 [facility] Last Admin: 10/08/17 08:31 Dose: 1 tablet Nicotine (Nicoderm Cq (Pbkc)) 21 mg TRANSDERM. DAILY [facility] Last Admin: 10/08/17 08:31 Dose: 21 mg Oxycodone HCl (Oxyir) 5 mg PO Q4H PRN PRN PRN Reason: Moderate Pain (pain scale 4-5) Last Admin: 10/08/17 07:56 Dose: 5 mg Sodium Chloride () 5 - 30 ml IV UD PRN PRN Reason: SALINE FLUSH Thiamine HCl (Vitamin B1) 100 mg PO DAILYCM [facility] Last Admin: 10/08/17 08:31 Dose: 100 mg Medical Necessity - Tobacco Use Smoking Status: Current every day smoker Assessment/Plan All Active Problems ETOH abuse (Acute) Tobacco abuse (Acute) Cellulitis of left hand (Acute) 1. cellulitis and abscess of left hand. improving I+D in ER blood cultures negative so far wound culture + MRSA on vancomycin ortho on consult and indicated no acute surgical needs (but if develop, then patient will need to be transferred to tertiary facility) consult ID for home going recs if continues to improve, then the hope would be to discharge as soon as the . 2. alcohol abuse drinks pretty much everyday, usually 2-24 oz beers. last drink yesterday AM. previously, was an even heavier drinker no s/s withdrawal/DTs. on CIWA protocol MVI 3. DVT proph: LMWH. Code Visit Inpatient E&M: 92814 Subs Hosp L2
--- NOTE | 2017-10-08 09:31 | PN_ITS ---
Patient Problems: Active and Suspected Problems ETOH abuse (Acute) Tobacco abuse (Acute) Cellulitis of left hand (Acute) Subjective: Left hand feeling better. Swelling has receded down arm to just confining the dorsum of his left hand. Able to bend his fingers of his left hand better, but back to normal, yet. Vitals/I&O's: Vital Signs Temp Pulse Resp BP Pulse Ox 36.6 C 72 16 132/88 H 100 10/08/17 08:35 10/08/17 08:35 10/08/17 08:35 10/08/17 08:35 10/08/17 08:35 Oxygen Delivery Method Room Air Weight: 67.33 kg Body Mass Index (BMI) 23.2 Intake and Output for Last 24 Hours 10/06/17 10/07/17 10/08/17 23:59 23:59 23:59 Intake Total 3601 / 3601 1445 / 1445 Output Total 1500 / 1500 Balance 2101 / 2101 1445 / 1445 General: Alert, Cooperative, No apparent distress HEENT: Atraumatic, Normocephalic Oral: Moist Mucosa, No Gingival or Mucosal Lesions/ Ulcerations Skin: - - opened abscess on dorsum of left hand with wick. no erythema. swelling around opening. no lymphagitis. Musculoskeletal: No Tenderness to Palpation of Joints or Extremities, No Muscle Wasting Psych/Mental Status: Normal Affect, Appropriate Laboratory Results 10/07/17 08:50: S.aureus Protein A PCR POSITIVE H, MRSA (PCR) POSITIVE H 10/07/17 12:34: POC Glucose 106 10/07/17 16:39: POC Glucose 105 10/07/17 22:34: Vancomycin Trough 5.9 10/07/17 22:43: POC Glucose 121 H 10/08/17 07:58: WBC 9.5, RBC 4.41 L, Hgb 13.3, Hct 39.4 L, MCV 89.3, MCH 30.2, MCHC 33.8, RDW 13.5, RDW Differential 44.1 H, Plt Count 278, MPV 9.3, Immature Gran % (Auto) 0.100, Neut % (Auto) 73.0 H, Lymph % (Auto) 16.8 L, [place] % (Auto) 7.3, Eos % (Auto) 2.6, Baso % (Auto) 0.2, Absolute Neuts (auto) 6.9, Absolute Lymphs (auto) 1.59, Total Counted Not Reportable 10/08/17 08:27: POC Glucose 114 H Current Medications Acyclovir (Zovirax) 200 mg PO BID [facility] Last Admin: 10/08/17 08:31 Dose: 200 mg Dextrose (D50w Syringe) 0 gm IV X1 PRN; Protocol PRN Reason: Hypoglycemia Glucagon () 1 mg IM .X1 PRN PRN Reason: Hypoglycemia Heparin Sodium (Porcine) (Heparin Na) 5,000 unit SC Q8 [facility] Last Admin: 10/08/17 05:37 Dose: 5,000 units Sodium Chloride () 1,000 mls @ 100 mls/hr IV .Q10H [facility] Last Admin: 10/07/17 18:16 Dose: 100 mls/hr Vancomycin HCl (Vancomycin) 1,000 mg in 200 mls @ 200 mls/hr IV Q8H [facility] Lorazepam (Ativan) 2 mg PO Q2H PRN PRN; Protocol PRN Reason: CIWA score > 8 but <15 Lorazepam (Ativan) 2 mg PO UD PRN; Protocol PRN Reason: CIWA score >/=15. Lorazepam (Ativan) 2 mg IV Q2H PRN PRN; Protocol PRN Reason: CIWA score > 8 but <15 Lorazepam (Ativan) 2 mg IV UD PRN; Protocol PRN Reason: CIWA score >/=15. Magnesium Hydroxide (Milk Of Magnesia) 30 ml PO DAILY PRN PRN PRN Reason: Constipation Multivitamins/Minerals (Multivitamin With Minerals) 1 tablet PO DAILY@0800 [facility] Last Admin: 10/08/17 08:31 Dose: 1 tablet Nicotine (Nicoderm Cq (Pbkc)) 21 mg TRANSDERM. DAILY [facility] Last Admin: 10/08/17 08:31 Dose: 21 mg Oxycodone HCl (Oxyir) 5 mg PO Q4H PRN PRN PRN Reason: Moderate Pain (pain scale 4-5) Last Admin: 10/08/17 07:56 Dose: 5 mg Sodium Chloride () 5 - 30 ml IV UD PRN PRN Reason: SALINE FLUSH Thiamine HCl (Vitamin B1) 100 mg PO DAILYCM [facility] Last Admin: 10/08/17 08:31 Dose: 100 mg Medical Necessity - Tobacco Use Smoking Status: Current every day smoker Assessment/Plan All Active Problems ETOH abuse (Acute) Tobacco abuse (Acute) Cellulitis of left hand (Acute) 1. cellulitis and abscess of left hand. * improving * I+D in ER * blood cultures negative so far * wound culture + MRSA * on vancomycin * ortho on consult and indicated no acute surgical needs (but if develop, then patient will need to be transferred to tertiary facility) * consult ID for home going recs * if continues to improve, then the hope would be to discharge as soon as the . 2. alcohol abuse * drinks pretty much everyday, usually 2-24 oz beers. last drink yesterday AM. * previously, was an even heavier drinker * no s/s withdrawal/DTs. * on CIWA protocol * MVI 3. DVT proph: LMWH. Code Visit Inpatient E&M: 05982 Subs Hosp L2
[2017-10-08] MEDS: 0.9% Normal Saline 1,000 ML 100 ML IV (11:53)
[2017-10-08 12:00] LABS: Bedside Glucose 89 mg/dL (70-110)
[2017-10-08] MEDS: Vancomycin IV 1,000 MG/200 ML BAG 200 MG IV ×2 (13:21→20:49)
[2017-10-08 13:27] VITALS: BP 136/103; PULSE 80; RESP 16; TEMP 36.7; O2SAT 100
[2017-10-08 15:21] VITALS: BP 129/89; PULSE 69; RESP 16; TEMP 36.8; O2SAT 100
[2017-10-08] MEDS: LORazepam 1 MG Tablet 2 MG PO ×2 (15:31→18:27)
[2017-10-08 16:30] LABS: Bedside Glucose 82 mg/dL (70-110)
[2017-10-08 18:17] VITALS: BP 124/84; PULSE 74; RESP 18; TEMP 36.7; O2SAT 95
[2017-10-08 20:51] VITALS: BP 109/70; PULSE 80; RESP 18; TEMP 36.8; O2SAT 98
[2017-10-08 23:35] LABS: Bedside Glucose 95 mg/dL (70-110)
[2017-10-09] MEDS: 0.9% Normal Saline 1,000 ML 100 ML IV ×2 (02:00→11:46)
[2017-10-09 03:50] VITALS: BP 110/68; PULSE 85; RESP 18; TEMP 36.8; O2SAT 97
[2017-10-09] MEDS: Vancomycin IV 1,000 MG/200 ML BAG 200 MG IV (05:04)
[2017-10-09] MEDS: oxyCODONE 5 MG Tablet PO ×2 (05:54→10:15)
[2017-10-09] MEDS: Heparin Injection (Vial) 5,000 UNIT/ML VIAL 5000 UNIT SC (05:55)
[2017-10-09 06:01] LABS: Bedside Glucose 105 mg/dL (70-110)
--- NOTE | 2017-10-09 06:22 | NURSING ---
Pt's nicotine patch was coming off so he removed it and I disposed of it in the sharps container. He is aware he will get another one this am. Coffee provided at his request.
--- NOTE | 2017-10-09 08:13 | PN.ORTHO_ITS ---
Patient Problems: Active and Suspected Problems ETOH abuse (Acute) Tobacco abuse (Acute) Cellulitis of left hand (Acute) Subjective: Feeling much better this morning Pain 2-3/10 with motion - Physical Exam General: Alert, Oriented x3, No apparent distress Extremities: Tenderness - left hand with I&D over LMF MCP. Able to actively and passively move fingers w/o significant pain. Negative Kan[place]'s signs Vital Signs Temp Pulse Resp BP Pulse Ox 98.2 F 85 18 110/68 97 10/09/17 03:50 10/09/17 03:50 10/09/17 03:50 10/09/17 03:50 10/09/17 03:50 Oxygen Delivery Method Room Air Weight: 148 lb 5.938 oz Body Mass Index (BMI) 23.2 Intake and Output for Last 24 Hours 10/07/17 10/08/17 10/09/17 23:59 23:59 23:59 Intake Total 3601 / 3601 3953 / 3953 1605 / 1605 Output Total 1500 / 1500 Balance 2101 / 2101 3953 / 3953 1605 / 1605 Laboratory Tests Past 24 Hrs 10/08/17 07:58 WBC 9.5 RBC 4.41 L Hgb 13.3 Hct 39.4 L MCV 89.3 MCH 30.2 MCHC 33.8 RDW 13.5 RDW Differential 44.1 H Plt Count 278 MPV 9.3 Immature Gran % (Auto) 0.100 Neut % (Auto) 73.0 H Lymph % (Auto) 16.8 L [place] % (Auto) 7.3 Eos % (Auto) 2.6 Baso % (Auto) 0.2 Absolute Neuts (auto) 6.9 Absolute Lymphs (auto) 1.59 Total Counted Not Reportable POC Glucose 10/09/17 10/08/17 10/08/17 05:52 23:30 16:26 POC Glucose 105 95 82 10/08/17 10/08/17 11:49 08:27 POC Glucose 89 114 H Medical Necessity - Tobacco Use Smoking Status: Current every day smoker Assessment/Plan All Active Problems ETOH abuse (Acute) Tobacco abuse (Acute) Cellulitis of left hand (Acute) Cellulitis left hand Still will monitor for deep web space infection ID consulted Can probably be sent home on oral atbx pending ID reccomendations with close follow up as outpatient. May yet need deeper I&D. Case discussed with hospitalist and patient.
--- NOTE | 2017-10-09 08:54 | NURSING ---
wound photo: left hand
--- NOTE | 2017-10-09 09:32 | PCM.PN.HOSP ---
Patient Problems: Active and Suspected Problems ETOH abuse (Acute) Tobacco abuse (Acute) Cellulitis of left hand (Acute) Subjective: No new complaints. Vitals/I&O's: Vital Signs Temp Pulse Resp BP Pulse Ox 36.8 C 85 18 110/68 97 10/09/17 03:50 10/09/17 03:50 10/09/17 03:50 10/09/17 03:50 10/09/17 03:50 Oxygen Delivery Method Room Air Weight: 67.3 kg Body Mass Index (BMI) 23.2 Intake and Output for Last 24 Hours 10/07/17 10/08/17 10/09/17 23:59 23:59 23:59 Intake Total 3601 / 3601 3953 / 3953 1605 / 1605 Output Total 1500 / 1500 Balance 2101 / 2101 3953 / 3953 1605 / 1605 General: Alert, No apparent distress HEENT: Atraumatic, Normocephalic Extremities: - - left hand wound with some purulence, but patient had no pain with expressing it. decreased edema on dorsum of hand. Laboratory Results 10/08/17 11:49: POC Glucose 89 10/08/17 16:26: POC Glucose 82 10/08/17 23:30: POC Glucose 95 10/09/17 05:52: POC Glucose 105 Current Medications Acyclovir (Zovirax) 200 mg PO BID [facility] Last Admin: 10/08/17 21:00 Dose: 200 mg Dextrose (D50w Syringe) 0 gm IV X1 PRN; Protocol PRN Reason: Hypoglycemia Glucagon () 1 mg IM .X1 PRN PRN Reason: Hypoglycemia Heparin Sodium (Porcine) (Heparin Na) 5,000 unit SC Q8 [facility] Last Admin: 10/09/17 05:55 Dose: 5,000 units Sodium Chloride () 1,000 mls @ 100 mls/hr IV .Q10H [facility] Last Admin: 10/09/17 02:00 Dose: 100 mls/hr Vancomycin HCl (Vancomycin) 1,000 mg in 200 mls @ 200 mls/hr IV Q8H [facility] Last Admin: 10/09/17 05:04 Dose: 200 mls/hr Lorazepam (Ativan) 2 mg PO Q2H PRN PRN; Protocol PRN Reason: CIWA score > 8 but <15 Last Admin: 10/08/17 18:27 Dose: 2 mg Lorazepam (Ativan) 2 mg PO UD PRN; Protocol PRN Reason: CIWA score >/=15. Lorazepam (Ativan) 2 mg IV Q2H PRN PRN; Protocol PRN Reason: CIWA score > 8 but <15 Lorazepam (Ativan) 2 mg IV UD PRN; Protocol PRN Reason: CIWA score >/=15. Magnesium Hydroxide (Milk Of Magnesia) 30 ml PO DAILY PRN PRN PRN Reason: Constipation Multivitamins/Minerals (Multivitamin With Minerals) 1 tablet PO DAILY@0800 [facility] Last Admin: 10/08/17 08:31 Dose: 1 tablet Nicotine (Nicoderm Cq (Pbkc)) 21 mg TRANSDERM. DAILY [facility] Last Admin: 10/08/17 08:31 Dose: 21 mg Oxycodone HCl (Oxyir) 5 mg PO Q4H PRN PRN PRN Reason: Moderate Pain (pain scale 4-5) Last Admin: 10/09/17 05:54 Dose: 5 mg Sodium Chloride () 5 - 30 ml IV UD PRN PRN Reason: SALINE FLUSH Thiamine HCl (Vitamin B1) 100 mg PO DAILYCM [facility] Last Admin: 10/08/17 08:31 Dose: 100 mg Medical Necessity - Tobacco Use Smoking Status: Current every day smoker Assessment/Plan All Active Problems ETOH abuse (Acute) Tobacco abuse (Acute) Cellulitis of left hand (Acute) 1. cellulitis and abscess of left hand. improving I+D in ER blood cultures negative so far wound culture + MRSA on vancomycin ortho on consult and indicated no acute surgical needs (but if develop, then patient will need to be transferred to tertiary facility). Patient to follow up as outpt. consult ID for home going recs if continues to improve, then the hope would be to discharge as soon as the . Patient to do wound care at home. 2. alcohol abuse drinks pretty much everyday, usually 2-24 oz beers. last drink yesterday AM. previously, was an even heavier drinker no s/s withdrawal/DTs. on CIWA protocol MVI 3. DVT proph: LMWH.
--- NOTE | 2017-10-09 09:35 | PN_ITS ---
Patient Problems: Active and Suspected Problems ETOH abuse (Acute) Tobacco abuse (Acute) Cellulitis of left hand (Acute) Subjective: No new complaints. Vitals/I&O's: Vital Signs Temp Pulse Resp BP Pulse Ox 36.8 C 85 18 110/68 97 10/09/17 03:50 10/09/17 03:50 10/09/17 03:50 10/09/17 03:50 10/09/17 03:50 Oxygen Delivery Method Room Air Weight: 67.3 kg Body Mass Index (BMI) 23.2 Intake and Output for Last 24 Hours 10/07/17 10/08/17 10/09/17 23:59 23:59 23:59 Intake Total 3601 / 3601 3953 / 3953 1605 / 1605 Output Total 1500 / 1500 Balance 2101 / 2101 3953 / 3953 1605 / 1605 General: Alert, No apparent distress HEENT: Atraumatic, Normocephalic Extremities: - - left hand wound with some purulence, but patient had no pain with expressing it. decreased edema on dorsum of hand. Laboratory Results 10/08/17 11:49: POC Glucose 89 10/08/17 16:26: POC Glucose 82 10/08/17 23:30: POC Glucose 95 10/09/17 05:52: POC Glucose 105 Current Medications Acyclovir (Zovirax) 200 mg PO BID [facility] Last Admin: 10/08/17 21:00 Dose: 200 mg Dextrose (D50w Syringe) 0 gm IV X1 PRN; Protocol PRN Reason: Hypoglycemia Glucagon () 1 mg IM .X1 PRN PRN Reason: Hypoglycemia Heparin Sodium (Porcine) (Heparin Na) 5,000 unit SC Q8 [facility] Last Admin: 10/09/17 05:55 Dose: 5,000 units Sodium Chloride () 1,000 mls @ 100 mls/hr IV .Q10H [facility] Last Admin: 10/09/17 02:00 Dose: 100 mls/hr Vancomycin HCl (Vancomycin) 1,000 mg in 200 mls @ 200 mls/hr IV Q8H [facility] Last Admin: 10/09/17 05:04 Dose: 200 mls/hr Lorazepam (Ativan) 2 mg PO Q2H PRN PRN; Protocol PRN Reason: CIWA score > 8 but <15 Last Admin: 10/08/17 18:27 Dose: 2 mg Lorazepam (Ativan) 2 mg PO UD PRN; Protocol PRN Reason: CIWA score >/=15. Lorazepam (Ativan) 2 mg IV Q2H PRN PRN; Protocol PRN Reason: CIWA score > 8 but <15 Lorazepam (Ativan) 2 mg IV UD PRN; Protocol PRN Reason: CIWA score >/=15. Magnesium Hydroxide (Milk Of Magnesia) 30 ml PO DAILY PRN PRN PRN Reason: Constipation Multivitamins/Minerals (Multivitamin With Minerals) 1 tablet PO DAILY@0800 [facility] Last Admin: 10/08/17 08:31 Dose: 1 tablet Nicotine (Nicoderm Cq (Pbkc)) 21 mg TRANSDERM. DAILY [facility] Last Admin: 10/08/17 08:31 Dose: 21 mg Oxycodone HCl (Oxyir) 5 mg PO Q4H PRN PRN PRN Reason: Moderate Pain (pain scale 4-5) Last Admin: 10/09/17 05:54 Dose: 5 mg Sodium Chloride () 5 - 30 ml IV UD PRN PRN Reason: SALINE FLUSH Thiamine HCl (Vitamin B1) 100 mg PO DAILYCM [facility] Last Admin: 10/08/17 08:31 Dose: 100 mg Medical Necessity - Tobacco Use Smoking Status: Current every day smoker Assessment/Plan All Active Problems ETOH abuse (Acute) Tobacco abuse (Acute) Cellulitis of left hand (Acute) 1. cellulitis and abscess of left hand. * improving * I+D in ER * blood cultures negative so far * wound culture + MRSA * on vancomycin * ortho on consult and indicated no acute surgical needs (but if develop, then patient will need to be transferred to tertiary facility). Patient to follow up as outpt. * consult ID for home going recs * if continues to improve, then the hope would be to discharge as soon as the . * Patient to do wound care at home. 2. alcohol abuse * drinks pretty much everyday, usually 2-24 oz beers. last drink yesterday AM. * previously, was an even heavier drinker * no s/s withdrawal/DTs. * on CIWA protocol * MVI 3. DVT proph: LMWH.
[2017-10-09] MEDS: Thiamine Hydrochloride 100 MG Tablet PO (10:15)
[2017-10-09] MEDS: Acyclovir 200 MG Capsule PO (10:15)
[2017-10-09] MEDS: Multivitamins,Ther W-Minerals Tablet 1 TABLET PO (10:15)
[2017-10-09 10:43] VITALS: BP 112/70; PULSE 84; RESP 18; TEMP 36.6; O2SAT 98
[2017-10-09] MEDS: Smz/Tmp Ds Tablet 1 TABLET PO (11:46)
[2017-10-09 11:50] LABS: Bedside Glucose 113 mg/dL (70-110)
--- NOTE | 2017-10-09 12:34 | CON.PCM_ITS ---
Problem List (1) MRSA (methicillin resistant Staphylococcus aureus) infection Status: Acute Reason for Consult: mrsa infection Consulted by: Dr. Jaime History of Present Illness: The patient is a 31 year old M with h/o etoh use who presented 10/06 with one day history of L hand dorsal swelling, pain, and redness. Woke up 10/05 with swelling over 3rd MCP. No known inciting event, no prior h/o MRSA infection or skin boils. Had some streaking up his wrist. Heated and used peroxide on safety pin to try to alejandra the area, area got much worse, came to ED. I&D done in ED, given vanc, ortho consulted, now much improved. He is L handed. Full ROS performed and neg except as noted above. - Medical History Surgical History: reviewed Allergies/Adverse Reactions: Allergies Penicillins Allergy (Verified 10/06/17 20:13) Hives Home Medications: Ambulatory Orders Medication Instructions Recorded Valacyclovir HCl [Valacyclovir] 500 mg PO DAILY 10/07/17 Smz/Tmp Ds [Bactrim Ds] 1 tab PO BIDCM 10 Days #20 tab 10/09/17 - Social History Tobacco Use: cigarettes Vital Signs Temp Pulse Resp BP Pulse Ox 97.9 F 84 18 112/70 98 10/09/17 10:43 10/09/17 10:43 10/09/17 10:43 10/09/17 10:43 10/09/17 10:43 Oxygen Delivery Method Room Air Weight: 67.3 kg Body Mass Index (BMI) 23.2 - Other Studies Radiology: [] reviewed Other Studies: [] Route of nutrition/ use of supplements: [] Nutritional Intake: [] IV Site: [] Merino Catheter: [] - Physical Exam General: Alert, Oriented x3, Cooperative HEENT: Atraumatic, PERRLA, EOMI Neck: Supple, No Nodes Lungs: Clear to auscultation, Normal air movement Cardiovascular: Regular rate, Regular Rhythm Abdomen: Bowel Sounds Present, Soft, Non Tender, Non-Distended Extremities: No edema Skin: Ulcer/ Wound - L hand photo reviewed IV Site: Peripheral, without redness Neurological: Cranial nerves II-XII grossly intact - Assessment/Plan Antibiotics: [] Assessment/Plan: [] Active and Suspected Problems ETOH abuse (Acute) Tobacco abuse (Acute) Cellulitis of left hand (Acute) L hand MRSA abscess with cellulitis - improving, ortho following. Ok for d/c home on po bactrim DS bid for 10 more days. Monitor for rash, fever, worsening hand. I gave him my card if he has any issues. Sent rx to [facility]. Thank you, will follow.
--- NOTE | 2017-10-09 13:00 | PCM.DC ---
- Discharge Diagnoses Current Active Problems: Current Active and Chronic Problems ETOH abuse (Acute) Tobacco abuse (Acute) Cellulitis of left hand (Acute) MRSA (methicillin resistant Staphylococcus aureus) infection (Acute) You will use the following diet at home:: No restrictions Return to work on:: 10/23/17 Weight Bearing Status: Weight bearing as tolerated Keep extremity elevated above heart level: Left Arm Additional Activity Instructions:: keep wound clean and dry. Use saline to clean wound and pack. Cover with gauze and keflix. Reinforce with LARRY wrap. wrap hand in plastic wrap or put in plastic bag when showering. Do not imerse in water until healed. Call your doctor if your incision/area has: Continuous Slow Oozing, Increased Pain/ Swelling, Increased Redness Call your doctor if you observe: Fever of 101 or Higher Allergies/Adverse Reactions: Allergies Penicillins Allergy (Verified 10/06/17 20:13) Hives Medications to take at Discharge Valacyclovir HCl [Valacyclovir] 500 mg PO DAILY 10/07/17 Acetaminophen 500 mg PO Q4H PRN #1 tablet 10/09/17 Hydrocodone Bitart/Apap 5-325 [[place] 5MG-325MG] 1 tablet PO Q12H PRN 3 Days #6 tablet 10/09/17 Ibuprofen 2 - 3 tab PO Q6H PRN #1 tablet 10/09/17 Multivitamins,Ther W-Minerals [Multivitamin With Minerals] 1 tablet PO DAILY@0800 tablet 10/09/17 Smz/Tmp Ds [Bactrim Ds] 1 tab PO BIDCM 10 Days #20 tab 10/09/17 The following prescriptions were given: Acetaminophen 500 mg PO Q4H PRN #1 tablet PRN Reason: Pain Hydrocodone Bitart/Apap 5-325 [[place] 5MG-325MG] 1 tablet PO Q12H PRN 3 Days #6 tablet PRN Reason: packing change/pain Smz/Tmp Ds [Bactrim Ds] 1 tab PO BIDCM 10 Days #20 tab Ibuprofen 2 - 3 tab PO Q6H PRN #1 tablet PRN Reason: Pain Primary Care Physician: Luis Fernando Arzola MD [Primary Care Provider] - Within 2 Weeks Test Results: Test results from this visit will be discussed in further detail at your follow-up appointment, if applicable. Please Follow Up With: Jose Myers DO When: 1 week. Proposed Discharge Date: 10/09/17
--- NOTE | 2017-10-09 13:04 | DCINST_ITS ---
- Discharge Diagnoses Current Active Problems: Current Active and Chronic Problems ETOH abuse (Acute) Tobacco abuse (Acute) Cellulitis of left hand (Acute) MRSA (methicillin resistant Staphylococcus aureus) infection (Acute) You will use the following diet at home:: No restrictions Return to work on:: 10/23/17 Weight Bearing Status: Weight bearing as tolerated Keep extremity elevated above heart level: Left Arm Additional Activity Instructions:: keep wound clean and dry. Use saline to clean wound and pack. Cover with gauze and keflix. Reinforce with LARRY wrap. wrap hand in plastic wrap or put in plastic bag when showering. Do not imerse in water until healed. Call your doctor if your incision/area has: Continuous Slow Oozing, Increased Pain/ Swelling, Increased Redness Call your doctor if you observe: Fever of 101 or Higher Allergies/Adverse Reactions: Allergies Penicillins Allergy (Verified 10/06/17 20:13) Hives Medications to take at Discharge Valacyclovir HCl [Valacyclovir] 500 mg PO DAILY 10/07/17 Acetaminophen 500 mg PO Q4H PRN #1 tablet 10/09/17 Hydrocodone Bitart/Apap 5-325 [[place] 5MG-325MG] 1 tablet PO Q12H PRN 3 Days #6 tablet 10/09/17 Ibuprofen 2 - 3 tab PO Q6H PRN #1 tablet 10/09/17 Multivitamins,Ther W-Minerals [Multivitamin With Minerals] 1 tablet PO DAILY@ 0800 tablet 10/09/17 Smz/Tmp Ds [Bactrim Ds] 1 tab PO BIDCM 10 Days #20 tab 10/09/17 The following prescriptions were given: Acetaminophen 500 mg PO Q4H PRN #1 tablet PRN Reason: Pain Hydrocodone Bitart/Apap 5-325 [[place] 5MG-325MG] 1 tablet PO Q12H PRN 3 Days #6 tablet PRN Reason: packing change/pain Smz/Tmp Ds [Bactrim Ds] 1 tab PO BIDCM 10 Days #20 tab Ibuprofen 2 - 3 tab PO Q6H PRN #1 tablet PRN Reason: Pain Primary Care Physician: Luis Fernando Arzola MD [Primary Care Provider] - Within 2 Weeks Test Results: Test results from this visit will be discussed in further detail at your follow- up appointment, if applicable. Please Follow Up With: Jose Myers DO When: 1 week. Proposed Discharge Date: 10/09/17
--- NOTE | 2017-10-09 13:04 | PCM.DC.SUM ---
Discharge Date and Diagnosis - Problem List Patient Problems: Active and Suspected Problems ETOH abuse (Acute) Tobacco abuse (Acute) Cellulitis of left hand (Acute) MRSA (methicillin resistant Staphylococcus aureus) infection (Acute) Date of Admission: 10/06/17 Date of Discharge: 10/09/17 - Primary Discharge Diagnosis Active and Suspected Problems ETOH abuse (Acute) Tobacco abuse (Acute) Cellulitis of left hand (Acute) MRSA (methicillin resistant Staphylococcus aureus) infection (Acute) Hospital Course and Treatment Imaging Results: Clinical Impression(s) from Imaging Studies Hand X-Ray 10/06/17 21:19 IMPRESSION: No fracture or dislocation. Soft tissue swelling along the dorsum of the left hand. No definite radiographic findings of osteomyelitis. Electronically Signed: Gerber Dwight, at 22:12 EDT Tel , Service support , Consultations 10/07/17 02:31 Consult: Onc/Wound/paste mixer Routine Comment: left hand wound Reason for Consult:: left hand wound Malia Cuellar Operations: None Procedures: None Summary of Care Provided: The patient is a 31 year old M presents with abscess and cellulitis of the hand. Patient had an incision and drainage in the interim. Culture came back positive for MRSA. Patient was seen in consultation by orthopedics and did not mention. Patient was seen by infectious disease and recommended 10 additional days of Bactrim. Patient was seen by wound care and did require packing of his wound. Patient instructed not to resume work for the next couple weeks until his wound is healed. Patient instructed also to avoid immersing his wound in water until that is healed as well. 1. cellulitis and abscess of left hand. improving I+D in ER blood cultures negative so far wound culture + MRSA on vancomycin ortho on consult and indicated no acute surgical needs (but if develop, then patient will need to be transferred to tertiary facility). Patient to follow up as outpt. consult ID for home going recs if continues to improve, then the hope would be to discharge as soon as the . Patient to do wound care at home. 2. alcohol abuse drinks pretty much everyday, usually 2-24 oz beers. last drink yesterday AM. previously, was an even heavier drinker no s/s withdrawal/DTs. on CIWA protocol MVI [] Discharge Diet: No Restrictions Discharge Activity: Return to Normal Activity Return to work on:: 10/23/17 Weight Bearing Status: Weight bearing as tolerated Keep extremity elevated above heart level: Left Arm Additional Activity Instructions:: keep wound clean and dry. Use saline to clean wound and pack. Cover with gauze and keflix. Reinforce with LARRY wrap. wrap hand in plastic wrap or put in plastic bag when showering. Do not imerse in water until healed. Call your doctor if your incision/area has: Continuous Slow Oozing, Increased Pain/ Swelling, Increased Redness Call your doctor if you observe: Fever of 101 or Higher Home Medications: Medications to take at Discharge Valacyclovir HCl [Valacyclovir] 500 mg PO DAILY 10/07/17 Acetaminophen 500 mg PO Q4H PRN #1 tablet 10/09/17 Hydrocodone Bitart/Apap 5-325 [[place] 5MG-325MG] 1 tablet PO Q12H PRN 3 Days #6 tablet 10/09/17 Ibuprofen 2 - 3 tab PO Q6H PRN #1 tablet 10/09/17 Multivitamins,Ther W-Minerals [Multivitamin With Minerals] 1 tablet PO DAILY@0800 tablet 10/09/17 Smz/Tmp Ds [Bactrim Ds] 1 tab PO BIDCM 10 Days #20 tab 10/09/17 Following Prescrptions Were Given to Patient: Acetaminophen 500 mg PO Q4H PRN #1 tablet PRN Reason: Pain Hydrocodone Bitart/Apap 5-325 [[place] 5MG-325MG] 1 tablet PO Q12H PRN 3 Days #6 tablet PRN Reason: packing change/pain Smz/Tmp Ds [Bactrim Ds] 1 tab PO BIDCM 10 Days #20 tab Ibuprofen 2 - 3 tab PO Q6H PRN #1 tablet PRN Reason: Pain Primary Care Physician: Luis Fernando Arzola MD [Primary Care Provider] - Within 2 Weeks Please Follow Up With: Jose Myers DO When: 1 week. Disposition: Home Minutes spent on discharge:: 32 Patient Condition:: Good Medical Necessity - Tobacco Use Smoking Status: Current every day smoker Meaningful Use Info Meaningful Use Diagnoses (Choose all that apply): None applicable Code Visit Inpatient E&M: 62032 Disch Hosp
--- NOTE | 2017-10-09 13:08 | DS.PCM_ITS ---
Discharge Date and Diagnosis - Problem List Patient Problems: Active and Suspected Problems ETOH abuse (Acute) Tobacco abuse (Acute) Cellulitis of left hand (Acute) MRSA (methicillin resistant Staphylococcus aureus) infection (Acute) Date of Admission: 10/06/17 Date of Discharge: 10/09/17 - Primary Discharge Diagnosis Active and Suspected Problems ETOH abuse (Acute) Tobacco abuse (Acute) Cellulitis of left hand (Acute) MRSA (methicillin resistant Staphylococcus aureus) infection (Acute) Hospital Course and Treatment Imaging Results: Clinical Impression(s) from Imaging Studies Hand X-Ray 10/06/17 21:19 IMPRESSION: No fracture or dislocation. Soft tissue swelling along the dorsum of the left hand. No definite radiographic findings of osteomyelitis. Electronically Signed: Gerber Dwight, at 22:12 EDT Tel , Service support , Consultations 10/07/17 02:31 Consult: Onc/Wound/roof technician Routine Comment: left hand wound Reason for Consult:: left hand wound Malia Cuellar Operations: None Procedures: None Summary of Care Provided: The patient is a 31 year old M presents with abscess and cellulitis of the hand. Patient had an incision and drainage in the interim. Culture came back positive for MRSA. Patient was seen in consultation by orthopedics and did not mention. Patient was seen by infectious disease and recommended 10 additional days of Bactrim. Patient was seen by wound care and did require packing of his wound. Patient instructed not to resume work for the next couple weeks until his wound is healed. Patient instructed also to avoid immersing his wound in water until that is healed as well. 1. cellulitis and abscess of left hand. * improving * I+D in ER * blood cultures negative so far * wound culture + MRSA * on vancomycin * ortho on consult and indicated no acute surgical needs (but if develop, then patient will need to be transferred to tertiary facility). Patient to follow up as outpt. * consult ID for home going recs * if continues to improve, then the hope would be to discharge as soon as the . * Patient to do wound care at home. 2. alcohol abuse * drinks pretty much everyday, usually 2-24 oz beers. last drink yesterday AM. * previously, was an even heavier drinker * no s/s withdrawal/DTs. * on CIWA protocol * MVI [] Discharge Diet: No Restrictions Discharge Activity: Return to Normal Activity Return to work on:: 10/23/17 Weight Bearing Status: Weight bearing as tolerated Keep extremity elevated above heart level: Left Arm Additional Activity Instructions:: keep wound clean and dry. Use saline to clean wound and pack. Cover with gauze and keflix. Reinforce with LARRY wrap. wrap hand in plastic wrap or put in plastic bag when showering. Do not imerse in water until healed. Call your doctor if your incision/area has: Continuous Slow Oozing, Increased Pain/ Swelling, Increased Redness Call your doctor if you observe: Fever of 101 or Higher Home Medications: Medications to take at Discharge Valacyclovir HCl [Valacyclovir] 500 mg PO DAILY 10/07/17 Acetaminophen 500 mg PO Q4H PRN #1 tablet 10/09/17 Hydrocodone Bitart/Apap 5-325 [[place] 5MG-325MG] 1 tablet PO Q12H PRN 3 Days #6 tablet 10/09/17 Ibuprofen 2 - 3 tab PO Q6H PRN #1 tablet 10/09/17 Multivitamins,Ther W-Minerals [Multivitamin With Minerals] 1 tablet PO DAILY@ 0800 tablet 10/09/17 Smz/Tmp Ds [Bactrim Ds] 1 tab PO BIDCM 10 Days #20 tab 10/09/17 Following Prescrptions Were Given to Patient: Acetaminophen 500 mg PO Q4H PRN #1 tablet PRN Reason: Pain Hydrocodone Bitart/Apap 5-325 [[place] 5MG-325MG] 1 tablet PO Q12H PRN 3 Days #6 tablet PRN Reason: packing change/pain Smz/Tmp Ds [Bactrim Ds] 1 tab PO BIDCM 10 Days #20 tab Ibuprofen 2 - 3 tab PO Q6H PRN #1 tablet PRN Reason: Pain Primary Care Physician: Luis Fernando Arzola MD [Primary Care Provider] - Within 2 Weeks Please Follow Up With: Jose Myers DO When: 1 week. Disposition: Home Minutes spent on discharge:: 32 Patient Condition:: Good Medical Necessity - Tobacco Use Smoking Status: Current every day smoker Meaningful Use Info Meaningful Use Diagnoses (Choose all that apply): None applicable Code Visit Inpatient E&M: 52282 Disch Hosp
--- NOTE | 2017-10-09 14:14 | CASEMGMT ---
Social Work Note ANGY Hills updated this worker that pt is interested in prescription assistance. SW informed ANGY Hills that this worker met with pt yesterday and provided HCAP application, Medicaid application and prescription assistance resources. SW informed Jeana that depending on the antibiotics pt will be discharged on the cost could be affordable. SW informed ANGY Hills that this worker can utilize Rx prescription assistance through [facility] but that if pt returns and is discharged on more expensive antibiotics, pt would've used his prescription assistance for this hospital visit. ANGY Hills states that she informed pt of this. Pt is being discharged on Bactrim. This SW placed a call to [facility] and left a message requesting a call back to determine cost of pt's prescription. Per ANGY Hills she took pt down to pharmacy and patient financial services as pt filled out HCAP application. Jeana states that pt's prescription was $32.00. Jeana states that pt states that he didn't have $32 and was going to try and get money for his prescription. Jeana states that pt had mentioned going to [employer] [facility] for prescription assistance. Plan: Pt discharged home today Elvi Montiel [employer]FEREE, [employer]
== END 2017-10-09 13:40 | disposition home or self-care (01) | DRG 854 ==
LOC: ED 20:53 → MS3 10-07 00:18
PROVIDERS: Family Medicine; Admitting Provider Internal Medicine; Emergency Provider Emergency Medicine; Family Provider Family Medicine; PCP Family Medicine
DX: A41.9 Sepsis, unspecified organism (principal); L02.512 Cutaneous abscess of left hand; L03.114 Cellulitis of left upper limb; B95.62 Methicillin resistant Staphylococcus aureus infection as the cause of diseases classified elsewhere; F10.10 Alcohol abuse, uncomplicated; F17.210 Nicotine dependence, cigarettes, uncomplicated; T63.301A Toxic effect of unspecified spider venom, accidental (unintentional), initial encounter
CPT/HCPCS: 36415; 73130; 80048; 80053; 80202; 82962; 83605; 85025; 85610; 85730; 87040; 87070; 87077; 87186; 87205; 87640; 93005; 99281; 99406; J7030; J7050; A4216

== ENCOUNTER 2017-11-19 13:42 | Emergency (ER) | payer SELFPAY ==
[2017-11-19 13:43] VITALS: BP 130/81; PULSE 88; RESP 16; TEMP 36.7; O2SAT 98; BMI 23.6
--- NOTE | 2017-11-19 15:30 | ED.VISSUMM ---
- ER Visit Summary Date of Service: 11/19/17 Chief Complaint: Laceration left hand History of Present Illness: The patient is a 31 M right hand dominant male presents with laceration between the webspace of his thumb and left index finger. This occurred at home. He admits to drinking. Tetanus is uncertain. Will review prior records. If greater than 10 years will update. He denies any paresthesia, anesthesia motor weakness. Physical Examination: There is a 3.5 cm laceration webspace between the left thumb and index finger. The fascia was not violated. Two-point squamation normal. The extensor in the side tendon is intact. The flexor digitorum superficialis and flexor digitorum profundus are intact. Patient able to extend, AB, ED.as well as flex right thumb. There is no subungual hematoma noted. Test Results: None Emergency Department Course and Treatment: Patient has a laceration will require repair. The wound was anesthetized 1% lidocaine by local infiltration. The wound was irrigated with 200 cc normal saline per the skin was closed using 5-0 Ethilon. Simple interrupted sutures were placed. Treatment Plan: Home-going wound instruction and sutures out in 10-14 days Disposition: Discharged home in stable improved condition Impression: 3.5 cm laceration left hand initial encounter This note was generated with [employer] dictation software. It may contain incorrect words, spelling, and punctuation that were not noted in review of the chart prior to signing ED Disposition - Plan for ED Patient: Disposition: Home or Assisted Living Chief Complaint: Laceration Instructions: ED Laceration Hand Referrals: Luis Fernando Arzola MD [Primary Care Provider] - 10-14 Days suture removal Additional Instructions: Clean wound with peroxide and Q-tip 3 times a day then apply bacitracin ointment.
[2017-11-19 16:18] VITALS: BP 134/72; PULSE 85; RESP 16; O2SAT 98
== END 2017-11-19 16:19 | disposition home or self-care (01) ==
PROVIDERS: Emergency Provider Emergency Medicine; Family Provider Family Medicine; PCP Family Medicine
DX: S61.412A Laceration without foreign body of left hand, initial encounter (principal); W45.8XXA Other foreign body or object entering through skin, initial encounter; Y93.9 Activity, unspecified; Y92.9 Unspecified place or not applicable; Y99.9 Unspecified external cause status; Z72.0 Tobacco use
CPT/HCPCS: 12002; 99285